=== PATIENT | female | born 1985 ===

== ENCOUNTER → 2021-09-07 13:30 | Outpatient (CLI) | payer OTHER, SELFPAY ==
--- NOTE | 2021-09-07 | DI.ECHO.S_ITS ---
[facility]---------+ [facility] +---------+ : : [address] : : : : [id number] : : : : Phone: [phone]---------+ Echocardiogram Report + + :Name: ARNALDO ALONZO Study Date: 09/07/2021 Height: 64 in : :[facility] ReadingLocation: Weight: 162 lb : : Gender: Female BSA: 1.8 m2 : :: 1985 Age: 36 yrs BP: 128/98 mmHg: :Reason For Study: CARDIAC MURMUR : :Ordering Physician: VERONICA, : :ANIVAL Performed By: Nurys Cummings : :Referring: ANIVAL BARRIOS : + + Interpretation Summary 1) Normal left ventricular thickness, size, wall motion, and systolic function (EF 55-60%). 2) Upper normal right ventricular size with normal function. 3) No significant valvular abnormalities. 4) No prior Echo available for comparison. Procedure: A two-dimensional transthoracic echocardiogram with color flow and Doppler was performed. The study quality was technically adequate. There is no prior echocardiogram noted for this patient. The patient was in sinus rhythm with heart rates between 75-90 bpm during the exam. Left Ventricle: The left ventricle is normal in size and wall thickness. The ejection fraction is estimated to be 55-60%. Left ventricular systolic function appears normal without focal wall motion abnormalities. Right Ventricle: The right ventricle is at the upper limits of normal in size. The right ventricular systolic function is normal. Atria: The left atrial size is normal. Right atrial size is normal. There is no Doppler evidence for an interatrial shunt. Mitral Valve: The mitral valve is normal in structure and function. There is mild mitral regurgitation. Aortic Valve: The aortic valve is trileaflet. The aortic valve opens well. There is no aortic valve stenosis. No aortic regurgitation is present. Tricuspid Valve: The tricuspid valve is normal in structure and function. There is trace tricuspid regurgitation. The right ventricular systolic pressure is estimated to be at least 18 mmHg based on an estimated right atrial pressure of 3 mm Hg. Pulmonic Valve: The pulmonic valve is not well seen, but is grossly normal. There is no pulmonic valvular regurgitation. Great Vessels: The aortic root is normal size. The dimensions of the ascending aorta are normal. The IVC is of normal diameter and collapses greater than 50% with a sniff. This suggests a low right atrial pressure of 3 mm Hg. Pericardium/ Pleura There is no pericardial effusion. There is no pleural effusion. MMode/2D Measurements & Calculations LVIDd: 4.2 cm LVOT diam: 2.1 cm LVIDs: 2.7 cm Ao root diam: 3.7 cm FS: 36.4 % asc Aorta Diam: 3.4 cm IVSd: 1.1 cm Ao Arch Diam (Prox Trans): 2.1 cm LVPWd: 0.99 cm LV de la fuente. diameter/BSA (cm/m^2): 2.3 LV sys. diameter/BSA (cm/m^2): 1.5 LA A2 area: 16.6 cm2 RA long axis: 4.6 cm LA A4 area: 18.6 cm2 RA area: 15.5 cm2 LA length (vol): 4.5 cm RA vol: 43.9 ml LA vol: 58.4 ml RA : 24.5 ml/m2 LA vol index: 32.6 ml/m2 IVC diam: 1.4 cm RVD1 (basal): 4.1 cm RVD2 (mid): 4.0 cm TAPSE: 1.8 cm Doppler Measurements & Calculations Ao V2 max: 123.7 cm/sec MV E max ray: 58.2 cm/sec Ao V2 mean: 93.4 cm/sec MV A max ray: 61.1 cm/sec Ao max P.1 mmHg MV E/A: 0.95 Ao mean P.7 mmHg Med Peak E' Ray: 6.5 cm/sec Ao V2 VTI: 24.7 cm E/E' med: 9.0 Lat Peak E' Ray: 10.0 cm/sec E/E' lat: 5.9 E/e' average: 7.4 MV dec time: 0.23 sec TR max ray: 191.8 cm/sec TR max P.7 mmHg PA V2 max: 63.6 cm/sec PA V2 mean: 42.0 cm/sec PA mean P.77 mmHg PA pr(Accel): 37.9 mmHg Reading Physician:[id number]:46 PM
== END ==
PROVIDERS: PCP Nurse Practitioner Family; Referring Provider Internal Medicine Cardiovascular Disease; Visit Provider Internal Medicine Cardiovascular Disease
DX: I34.0 Nonrheumatic mitral (valve) insufficiency (principal); R01.1 Cardiac murmur, unspecified; Z87.74 Personal history of (corrected) congenital malformations of heart and circulatory system
CPT/HCPCS: 93306